=== PATIENT | female | born 2000 | race Caucasian/White ===

== ENCOUNTER 2023-07-19 11:20 | Outpatient (CLI) | payer BC ==
[~2023-07-19] VITALS: Ht 167.6 cm; Wt 94.1 kg
--- NOTE | 2023-07-19 11:30 | NUR ---
1130PT AMBULATORY TO UNIT WITH SIGNIFICANT OTHER. PT CHANGED INTO GOWN. 1135THIS RN AT BEDSIDE. TOCO AND EFM PLACED. EFM CAT I. PT VITAL SIGNS STABLE. 1140PT STATES SHE CAME IN FOR VAGINAL BLEEDING. SHE HAD BEEN CHECKED IN THE OFFICE 1.[address] MC. SHE WAS RUNNING ERRANDS AROUND [place]. SHE STATED SHE WENT THROUGH TWO PANTY LINERS WITH 'HEAVY BLEEDING'. PT REPORTS POSITIVE MOVEMENT. PT STATES FEELING SOME INTERMITTENT CRAMPING AND PT DENIES ANY VAGINAL BLEEDING PRIOR TO HER OFFICE VISIT. PT DENIES ANY LEAKING OF FLUID. THIS RN ASSESS PT'S PAD IN THE BATHROOM. A COUPLE OF DIME SIZE SPOTS OF BLOOD PRESENT ON PANTY LINER. 1145THIS RN HELPS PLACE PAD AND UNDERWEAR ON PT TO ASSESS FOR BLEEDING.
[2023-07-19 11:35] VITALS: TEMP 98.7
[2023-07-19 12:00] VITALS: BP 121/3; PULSE 94; TEMP 98.7
[2023-07-19] MEDS ORDERED: PRENATAL TABLET PO (12:20)
[2023-07-19] MEDS ORDERED: VIACTIV PO (12:25)
[2023-07-19] MEDS ORDERED: PROFERRIN ES12 MG PO (12:28)
[2023-07-19 12:30] VITALS: BP 128/77; PULSE 98
[2023-07-19 13:00] VITALS: BP 117/77; PULSE 71
[2023-07-19] MEDS ORDERED: LR 1,000 ML IV PRN (13:45)
--- NOTE | 2023-07-19 14:11 | NUR ---
1250DR ALEXANDRO ON UNIT. THIS RN GIVES HER AN UPDATE ON PT. "WE PUT A PAD ON THE PT AROUND 12. I CHECKED THE PAD AT 1240. THERE WAS NOTHING ON THE PAD. I DID A CERVICAL EXAM AND DID NOT NOTE ANY CHANGE IN HER CERVIX. THERE WAS MINIMAL BLOOD ON MY GLOVE." DR MC STATES "SHE CAN GO HOME". 1300THIS RN GIVES PT HANDOUTS ABOUT EARLY LABOR AND DISCOMFORTS DURING . THIS RN INSTRUCTS WHEN/WHO TO CALL AND WHEN TO COME IN. PT VERBALIZES UNDERSTANDING. 1305PT AMBULATORY OFF UNIT WITH SPOUSE.
== END 2023-07-19 13:05 | disposition home or self-care (01) ==
LOC: LDRO 11:20
DX: Z34.83 Encounter for supervision of other normal pregnancy, third trimester (principal); Z3A.38 38 weeks gestation of pregnancy